=== PATIENT | female | born 1980 | race Caucasian/White ===

== ENCOUNTER 2018-08-15 13:45 | Emergency (ER) | payer MEDICAID ==
[2018-08-15] MEDS ORDERED: Benzocaine 20% Topical Spray UD MUCMEM ONE (13:48)
[2018-08-15] MEDS ORDERED: Lidocaine 2% Viscous Solution 15 ML Cup PO ONE (13:48)
--- NOTE | 2018-08-15 14:17 | EDM.PDOC ---
ED HPI GENERAL MEDICAL PROBLEM - General Chief Complaint: ENT Problem Stated Complaint: TOOTH PAIN Time Seen by Provider: 08/15/18 13:48 Source of Information: Reports: Patient History Limitations: Reports: No Limitations - History of Present Illness INITIAL COMMENTS - FREE TEXT/NARRATIVE: HISTORY AND PHYSICAL: History of present illness: Patient is a 37-year-old female presents to the ED today for concern of tooth pain 1 day. Patient states she had cracked the tooth back in December and has not followed up with the dentist. Patient states starting yesterday she began to have pain of the tooth that has been cracked for several months. Patient denies any other symptoms or concerns at this time. Patient denies fever, chills, chest pain, shortness of breath, or cough. Denies headache, neck stiff ness, change in vision, syncope, or near syncope. Denies nausea, vomiting, abdominal pain, diarrhea, constipation, or dysuria. Has not noted any blood in urine or stool. Patient has been eating and drinking appropriately. Review of systems: As per history of present illness and below otherwise all systems reviewed and negative. Past medical history: As per history of present illness and as reviewed below otherwise noncontributory. Surgical history: As per history of present illness and as reviewed below otherwise noncontributory. Social history: See social history for further information Family history: As per history of present illness and as reviewed below otherwise noncontributory. Physical exam: General: Patient is alert, oriented, and in no acute distress. Patient sitting comfortably on exam table. HEENT: Atraumatic, normocephalic, pupils equal and reactive bilaterally, negative for conjunctival pallor or scleral icterus, mucous membranes moist, TMs normal bilaterally, throat clear, neck supple, nontender, trachea midline. No drooling or trismus noted. No meningeal signs. No hot potato voice noted. Tooth #15 has a small missing piece/fracture of the tooth. There is no surrounding edema or erythema around the tooth. There is no evidence of surrounding abscess or infection. Lungs: Clear to auscultation, breath sounds equal bilaterally, chest nontender. Heart: S1S2, regular rate and rhythm without overt murmur Abdomen: Soft, nondistended, nontender. Negative for masses or hepatosplenomegaly. Negative for costovertebral tenderness. Pelvis: Stable nontender. Genitourinary: Deferred. Rectal: Deferred. Skin: Intact, warm, dry. No lesions or rashes noted. Extremities: Atraumatic, negative for cords or calf pain. Neurovascular unremarkable. Neuro: Awake, alert, oriented. Cranial nerves II through XII unremarkable. Cerebellum unremarkable. Motor and sensory unremarkable throughout. Exam nonfocal. Notes: Discussed the importance for follow-up with a dentist for definitive treatment and care. Voices understanding and is agreeable to plan of care. Denies any further questions or concerns at this time. Diagnostics: None Therapeutics: Dental balls Prescription: None Impression: Tooth fracture Plan: 1. Tylenol and/or ibuprofen as directed and as needed for pain management. 2. "Tooth Balls" have been given to you; apply along the gumline every 2-3 hours as needed. Do not swallow these; external use only. 3. Follow-up with a dentist for definitive care. List of dental offices have been provided to you. Return to the ED as needed and as discussed. Definitive disposition and diagnosis as appropriate pending reevaluation and review of above. Left Upper Tooth/Teeth Pain Score (Numeric/FACES): 9 - Related Data Allergies Allergy/AdvReac Type Severity Reaction Status Date / Time Sulfa (Sulfonamide Allergy Rash Verified 08/15/18 14:07 Antibiotics) Home Meds: Home Meds . 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 Musculoskeletal History: Reports: None Neurological History: Reports: None Psychiatric History: Reports: None Endocrine/Metabolic History: Reports: None Hematologic History: Reports: None Immunologic History: Reports: None Oncologic (Cancer) History: Reports: None Dermatologic History: Reports: None - Infectious Disease History Infectious Disease History: Reports: Chicken Pox - Past Surgical History Head Surgeries/Procedures: Reports: None Female Surgical History: Reports: Section Other Female Surgeries/Procedures: 4 c-sections Social & Family History - Family History Family Medical History: Noncontributory - Tobacco Use Smoking Status *Q: Never Smoker - Caffeine Use Caffeine Use: Reports: Coffee - Recreational Drug Use Recreational Drug Use: No ED ROS ENT - Review of Systems Review Of Systems: ROS reveals no pertinent complaints other than HPI. ED EXAM, ENT - Physical Exam Exam: See Below (See dictation) Course - Vital Signs Last Recorded V/S: Last Vital Signs Temp 37.2 C 08/15/18 14:05 Pulse 83 08/15/18 14:05 Resp 18 08/15/18 14:05 BP 107/55 L 08/15/18 14:05 Pulse Ox 100 08/15/18 14:05 - Orders/Labs/Meds Meds: Medications Discontinued Medications Generic Name Dose Route Start Last Admin Trade Name Frewanda PRN Reason Stop Dose Admin Benzocaine 2 each 08/15/18 13:48 Hurricaine One 20% MUCMEM 08/15/18 13:49 ONETIME ONE Lidocaine HCl 15 ml 08/15/18 13:48 Xylocaine 2% Viscous PO 08/15/18 13:49 ONETIME ONE Departure - Departure Time of Disposition: 14:16 Disposition: Home, Self-Care 01 Clinical Impression: Fractured tooth Qualifiers: Encounter type: initial encounter Fracture type: closed Qualified Code(s): S02.5XXA - Fracture of tooth (traumatic), initial encounter for closed fracture - Discharge Information Referrals: Roman Pabon MD [Primary Care Provider] - Additional Instructions: The following information is given to patients seen in the emergency department who are being discharged to home. This information is to outline your options for follow-up care. We provide all patients seen in our emergency department with a follow-up referral. The need for follow-up, as well as the timing and circumstances, are variable depending upon the specifics of your emergency department visit. If you don't have a primary care physician on staff, we will provide you with a referral. We always advise you to contact your personal physician following an emergency department visit to inform them of the circumstance of the visit and for follow-up with them and/or the need for any referrals to a consulting specialist. The emergency department will also refer you to a specialist when appropriate. This referral assures that you have the opportunity for follow-up care with a specialist. All of these measure are taken in an effort to provide you with optimal care, which includes your follow-up. Under all circumstances we always encourage you to contact your private physician who remains a resource for coordinating your care. When calling for follow-up care, please make the office aware that this follow-up is from your recent emergency room visit. If for any reason you are refused follow-up, please contact the [facility] Emergency Department at and asked to speak to the emergency department charge nurse. [facility] [address] [place] [address] [facility] [address] [place] [id number] 1. Tylenol and/or ibuprofen as directed and as needed for pain management. 2. "Tooth Balls" have been given to you; apply along the gumline every 2-3 hours as needed. Do not swallow these; external use only. 3. Follow-up with a dentist for definitive care. List of dental offices have been provided to you. Return to the ED as needed and as discussed.
== END 2018-08-15 15:01 | disposition home or self-care (01) ==
LOC: MW.ED 13:45
DX: K03.81 Cracked tooth (principal); Z88.2 Allergy status to sulfonamides
CPT/HCPCS: 99282; A9270

== ENCOUNTER 2018-09-13 13:19 | Day surgery (SDC) | payer MEDICAID ==
[~2018-09-13 13:19] MED LIST: Doxycycline 100 MG Cap PO ONE; Lactated Ringers 1,000 ML IV SCH
--- NOTE | 2018-09-13 15:06 | PCM.PREANE ---
Preanesthetic Assessment - Anesthesia/Transfusion/Family Hx Anesthesia History: Prior Anesthesia Reaction Other Type of Anesthesia Reaction Comment: some medication used in Spinal/ Epidural for caused rash and hives Family History of Anesthesia Reaction: No Transfusion History: No Prior Transfusion(s) - Review of Systems General: No Symptoms Pulmonary: No Symptoms Cardiovascular: No Symptoms Gastrointestinal: No Symptoms Neurological: No Symptoms Other: Reports: None - Physical Assessment NPO Status Date: 09/12/18 Height: 5 ft 2 in Weight: 69.4 kg ASA Class: 2 Mental Status: Alert & Oriented x3 Airway Class: Mallampati = 2 Dentition: Reports: Partial (temp partial central maxillary incisors) ROM/Head Extension: Full Lungs: Clear to Auscultation, Normal Respiratory Effort Cardiovascular: Regular Rate - Allergies Allergies/Adverse Reactions: Allergies Allergy/AdvReac Type Severity Reaction Status Date / Time Sulfa (Sulfonamide Allergy Rash Verified 09/12/18 14:08 Antibiotics) - Blood Blood Available: No - Anesthesia Plan Pre-Op Medication Ordered: None - Acknowledgements Anesthesia Type Planned: General Anesthesia Pt an Appropriate Candidate for the Planned Anesthesia: Yes Alternatives and Risks of Anesthesia Discussed w Pt/Guardian: Yes Pt/Guardian Understands and Agrees with Anesthesia Plan: Yes Additional Comments: missed Ab at 8 weeks, PLAN: ga/lma PreAnesthesia Questionnaire - Past Health History Medical/Surgical History: Denies Medical/Surgical History HEENT History: Reports: Other (See Below) Other HEENT History: has upper partial removable denture Cardiovascular History: Reports: None Respiratory History: Reports: None Gastrointestinal History: Reports: Other (See Below) Other Gastrointestinal History: heartburn while Genitourinary History: Reports: None 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: Musculoskeletal History: Reports: None Neurological History: Reports: Other (See Below) Other Neuro History: hx of motion sickness Psychiatric History: Reports: None Endocrine/Metabolic History: Reports: None Hematologic History: Reports: None Immunologic History: Reports: None Oncologic (Cancer) History: Reports: None Dermatologic History: Reports: None - Infectious Disease History Infectious Disease History: Reports: Chicken Pox - Past Surgical History Female Surgical History: Reports: Section, D&C - SUBSTANCE USE Smoking Status *Q: Former Smoker Tobacco Use Within Last Twelve Months: No Recreational Drug Use History: No - HOME MEDS Home Medications: Home Meds . [No Known Home Meds] 01/26/18 [History] - CURRENT (IN HOUSE) MEDS Current Meds: Current Medications Doxycycline Hyclate (Vibramycin) 200 mg PO ONETIME ONE Stop: 09/13/18 16:01 Lactated Ringer's (Ringers, Lactated) 1,000 mls @ 100 mls/hr IV ASDIRECTED CALIXTO
[2018-09-13] MEDS ORDERED: Sodium Chloride 0.9% 10 ML SDV IV PRN (15:31)
[2018-09-13] MEDS ORDERED: Sodium Chloride 0.9% 2.5 ML Syringe FLUSH PRN (15:31)
[2018-09-13] MEDS ORDERED: Sodium Chloride 0.9% 10 ML Syringe FLUSH PRN (15:31)
[2018-09-13] MEDS ORDERED: Doxycycline 100 MG Cap PO ONE ×3 (16:00→16:30)
[2018-09-13] MEDS ORDERED: Ondansetron 4 MG/2 ML SDV IVPUSH ONE (16:51)
[2018-09-13] MEDS ORDERED: fentaNYL 100 MCG/2 ML SDV IVPUSH PRN ×2 (17:07→17:27)
[2018-09-13] MEDS ORDERED: Naloxone 0.4 MG/ML Syringe IVPUSH PRN (17:27)
[2018-09-13] MEDS ORDERED: Atropine 0.1 MG/ML 10 ML Syringe IVPUSH PRN ×2 (17:27)
[2018-09-13] MEDS ORDERED: EPINEPHrine 1:10,000 1 MG/10 ML Syringe IVPUSH PRN (17:27)
[2018-09-13] MEDS ORDERED: Albuterol 0.083% 2.5 MG/3 ML Neb Soln NEB PRN (17:27)
[2018-09-13] MEDS ORDERED: 50% Dextrose in Water 50 ML Syringe IVPUSH PRN (17:27)
[2018-09-13] MEDS ORDERED: Lidocaine 2% 5 ML SDV ONE (17:30)
[2018-09-13] MEDS ORDERED: Propofol 200 MG/20 ML SDV ONE (17:31)
[2018-09-13] MEDS ORDERED: Midazolam 1 MG/ML 2 ML SDV ONE (17:31)
[2018-09-13] MEDS ORDERED: fentaNYL 100 MCG/2 ML SDV ONE (17:31)
[2018-09-13] MEDS ORDERED: Ketorolac 30 MG/ML SDV ONE (17:40)
[2018-09-13] MEDS ORDERED: Misoprostol 200 MCG Tab ONE ×2 (17:54→18:05)
[2018-09-13] MEDS ORDERED: Azithromycin 250 MG Tab PO ONE (18:17)
--- NOTE | 2018-09-13 18:22 | PCM.OPNOTE ---
- General Post-Op/Procedure Note Date of Surgery/Procedure: 09/13/18 Operative Procedure(s): Suction Dilatation and Curettage Findings: 8 week sized anteverted uterus Pre Op Diagnosis: 37 yo @ 8w6d with Missed Post-Op Diagnosis: same Anesthesia Technique: General ET Tube Primary Surgeon: Juliette Chaudhry Anesthesia Provider: Jennifer Rubio Pathology: POC for Pathology and Chromosome analysis Fluid Replacement, Intraop: 1,000 EBL in mLs: 100 Complications: None Condition: Good
[2018-09-13] MEDS ORDERED: Acetaminophen/HYDROcodone 325-5 MG Tab PO PRN (18:25)
--- NOTE | 2018-09-13 18:47 | PCM.POSTAN ---
POST ANESTHESIA ASSESSMENT - MENTAL STATUS Mental Status: Alert, Oriented - RESPIRATORY Respiratory Status: Respiratory Rate WNL, Airway Patent, O2 Saturation Stable - CARDIOVASCULAR CV Status: Pulse Rate WNL, Blood Pressure Stable - GASTROINTESTINAL GI Status: No Symptoms - POST OP HYDRATION Hydration Status: Adequate & Stable
--- NOTE | 2018-09-13 20:33 | PCM48HPAN ---
Post Anesthesia Note - EVALUATION WITHIN 48HRS OF ANESTHETIC Vital Signs in Normal Range: Yes Patient Participated in Evaluation: Yes Respiratory Function Stable: Yes Airway Patent: Yes Cardiovascular Function Stable: Yes Hydration Status Stable: Yes Pain Control Satisfactory: Yes (getting percocet) Nausea and Vomiting Control Satisfactory: Yes Mental Status Recovered: Yes Resp Rate: 16
[2018-09-13] MEDS ORDERED: Doxycycline 100 MG Cap ONE (21:35)
[2018-09-13] MEDS ORDERED: Azithromycin 250 MG Tab ONE (21:36)
--- NOTE | 2018-09-14 07:58 | OR ---
SURGEON: JACEY OH DATE OF PROCEDURE: 09/13/2018 PREOPERATIVE DIAGNOSES: Missed at 8 weeks 6 days. POSTOPERATIVE DIAGNOSES: Missed at 8 weeks 6 days. PROCEDURE: Suction curettage. ANAESTHESIA: General PATHOLOGY: Products of conception sent to pathology and also for chromosome analysis. IV FLUID: 1000. EBL: 100. BRIEF HISTORY: She is a 37-year-old, G10, P4-0-5-4 at 8 weeks 6 days came in for care and noted to have no heart beat.Patient has a history of recurrent . , The patient was counseled for medical versus surgical management. Patient desired surgical management.She was explained the risk, benefits and alternative , she was given the opportunity to ask questions. All questions answered and she signed the consent. DESCRIPTION OF PROCEDURE: The patient was taken to the operating room where general anesthesia was performed without difficulty. She was prepared and draped in the dorsal lithotomy position with Gallito stirrups. The speculum was placed in the vagina to expose the cervix. The Luisana clamp was used to grasp the anterior lip of the cervix. The cervix was then carefully dilated to accommodate the 9 mm suction curved curette. The suction curette was advanced to the uterine fundus. The suction was then started. The product of conception was evacuated with the curette rotating on the outward movement. Then, the size 3 sharp curette was advanced into the uterine cavity . Gentle curetting was performed on the anterior, posterior, and lateral uterine pineda. Again the , the suction curette was reintroduced to clear the uterus. . The Luisana clamp was removed from the cervix , Hemostasis was noted after the procedure. 800 mcg of Cytotec was placed in the posterior fornix. All instrument and pad count were correct x2. The patient tolerated the procedure well She was awakened from general anaesthesia and taken to recovery room in stable condition. KARL / KIM /[id number] MTDMarcie
== END 2018-09-13 22:30 | disposition home or self-care (01) ==
LOC: MW.SDS 13:19
PROVIDERS: ATTEND Obstetrics & Gynecology
DX: O02.1 Missed abortion (principal); Z88.2 Allergy status to sulfonamides; Z87.891 Personal history of nicotine dependence; Z79.899 Other long term (current) drug therapy
CPT/HCPCS: 01965; 88233; A9270-GY; J1885; J2001; J2250; J2405; J2704; J3010; J7120